=== PATIENT | female | born 1970 | race Caucasian/White ===

== ENCOUNTER 2020-05-13 11:23 | Emergency (ER) | payer OTHER ==
[2020-05-13 12:01] VITALS: BP 125/78; PULSE 81; TEMP 98.1; BMI 22.8
== END 2020-05-13 13:44 | disposition home or self-care (01) ==
LOC: JERFT 11:23 → JER 11:23 → JERFT 13:44
DX: S93.402A Sprain of unspecified ligament of left ankle, initial encounter (principal)
CPT/HCPCS: 73610-TC-LT-FY; 73630-TC-LT; 99284-25

== ENCOUNTER 2024-10-25 07:03 | Day surgery (SDC) | payer OTHER ==
[2024-10-20 15:19] VITALS: BMI 24.3
[2024-10-25 09:37] VITALS: TEMP 98.3
[2024-10-25 10:20] VITALS: BP 119/69; PULSE 78; RESP 15
== END 2024-10-25 10:20 | disposition home or self-care (01) ==
LOC: JASU-ENDO 07:03
PROVIDERS: ATTEND Internal Medicine Gastroenterology
PROC: 0DJD8ZZ Inspection of Lower Intestinal Tract, Via Natural or Artificial Opening Endoscopic (ICD-10-PCS; principal; 2024-10-25 09:00)
DX: Z12.11 Encounter for screening for malignant neoplasm of colon (principal); K63.89 Other specified diseases of intestine
CPT/HCPCS: 82962